=== PATIENT | male | born 1970 | race Caucasian/White ===

== ENCOUNTER → 2020-10-16 | Day surgery (SDC) | payer BC | END | disposition still patient (30) | LOC: MSO 09:01 | DX: H26.8 Other specified cataract (principal); R56.9 Unspecified convulsions; F17.220 Nicotine dependence, chewing tobacco, uncomplicated; Z79.899 Other long term (current) drug therapy | CPT/HCPCS: 00142; J0171; J2250; V2632 ==

== ENCOUNTER → 2020-11-13 | Day surgery (SDC) | payer BC | END | disposition home or self-care (01) | LOC: MSO 08:16 | DX: H26.8 Other specified cataract (principal); R56.9 Unspecified convulsions; Z79.899 Other long term (current) drug therapy | CPT/HCPCS: 00142; J0171; J2250; V2632 ==